=== PATIENT | male | born 1995 | race Caucasian/White ===

== ENCOUNTER 2024-03-31 11:15 | Emergency (ER) | payer BC, SELFPAY ==
[2024-03-31 11:35] VITALS: BP 134/66; PULSE 90; RESP 16; TEMP 36.6; O2SAT 98
--- NOTE | 2024-03-31 11:49 | ED.URI ---
HPI - URI/Sore Throat General Chief Complaint: Upper Respiratory Infection Stated Complaint: Sinus Infection Time Seen by Provider: 03/31/24 11:49 Source: patient and RN notes reviewed Mode of arrival: ambulatory Limitations: no limitations History of Present Illness HPI Narrative: 29-year-old male presented for complaint of sinus congestion and pressure, headache and cough for almost 2 weeks. He tested negative for strep, COVID, and flu 2 days ago. Endorses shortness of breath when walking up stairs. Denies chest pain, palpitations, wheezing, nausea, vomiting, diarrhea, fevers or chills. Taking Mucinex and DayQuil. is positive for strep. MD elicited complaint: cough Related Data Allergies Allergy/AdvReac Type Severity Reaction Status Date / Time No Known Allergies Allergy Verified 03/31/24 11:41 Review of Systems Review of Systems: CONSTITUTIONAL: Endorses malaise, denies chills, sweats, fever EYES: Denies visual changes, redness, or discharge ENT: Reports rhinorrhea, congestion, sinus pain, sore throat CARDIOVASCULAR: Denies chest pain, palpitations, edema RESPIRATORY: Reports cough, post nasal drainage. Denies dyspnea GASTROINTESTINAL: Denies abdominal pain, nausea, vomiting, diarrhea SKIN: Denies rash MUSCULOSKELETAL: Endorses myalgia NEUROLOGIC: Reports headache Exam Narrative: GENERAL: Mildly Ill-appearing, nontoxic EYES: PERRLA, conjunctivae clear ENT: Mucous membranes moist. TMs pearly garcia with dull light reflex bilaterally; no tragal tenderness. Oropharynx not erythematous without lesions or exudate, no drooling, no hoarseness, no trismus, uvula midline. No tripod positioning, muffled voice, soft palate or pharyngeal wall bulging NECK: Supple. No lymphadenopathy CHEST: Clear to auscultation, breath sounds equal. No wheezing, rhonchi, rales, or stridor. No respiratory distress, speaks in full sentences. Occasional nonproductive cough noted. HEART: Regular rate and rhythm. No murmur heard. SKIN: Warm, dry, no rash. NEURO: Alert and oriented x3. PSYCH: Normal mood and affect Course Course Emergency Course: Patient is aware of diagnosis, understands and agrees to treatment plan. Anticipatory guidance given. Patient agrees to follow-up as directed and is aware of reasons to seek care at the emergency department. Portions of this record may have been created with voice recognition software Level of Care: Express Care Visit Vital Signs Vital signs: Vital Signs Temperature 97.8 F 03/31/24 11:35 Pulse Rate 90 03/31/24 11:35 Respiratory Rate 16 03/31/24 11:35 Blood Pressure 134/66 03/31/24 11:35 Pulse Oximetry 98 03/31/24 11:35 Oxygen Delivery Room Air 03/31/24 11:35 Temperature 97.8 F 03/31/24 11:35 Pulse Rate 90 03/31/24 11:35 Respiratory Rate 16 03/31/24 11:35 Blood Pressure 134/66 03/31/24 11:35 Pulse Oximetry 98 03/31/24 11:35 Oxygen Delivery Room Air 03/31/24 11:35 reviewed MDM - URI/Sore Throat MDM Narrative Medical decision making narrative: Discussed physical exam findings. Advised supportive measures and signs/symptoms to go to the ER. Pt is appropriate for outpt treatment and f/u. Differential Diagnosis Differential diagnosis: Likely upper respiratory infection, sinusitis, viral infection and bronchitis Discharge Plan Discharge Clinical Impression: Sinusitis Patient Disposition: Home, Self-Care Condition: Stable Instructions: Antibiotic Form, Rhinosinusitis (ED) Additional Instructions: Take antibiotic as directed Recommend Flonase spray and Zyrtec (or Claritin/Radha) over the counter Cough syrup may cause drowsiness; avoid driving or take it at night time. Tylenol 1000mg every 8 hours as needed for pain Symptomatic treatment includes: rest, fluids, and increase humidity of the air at home. Follow up with your primary care provider in 1 week. Go to the ER for worsening symptoms or concerns. Prescrip
== END 2024-03-31 12:00 | disposition home or self-care (01) ==
PROVIDERS: Emergency Provider Nurse Practitioner Family
DX: J32.9 Chronic sinusitis, unspecified (principal)
CPT/HCPCS: 99203; G0463

== ENCOUNTER 2024-09-24 11:09 | Emergency (ER) | payer BC, SELFPAY ==
[2024-09-24 11:15] VITALS: BP 133/78; PULSE 84; RESP 18; TEMP 36.4; O2SAT 99
--- NOTE | 2024-09-24 11:29 | ED_ITS ---
HPI - URI/Sore Throat General Chief Complaint: Upper Respiratory Infection Stated Complaint: Cold Like Time Seen by Provider: 09/24/24 11:11 Source: patient and RN notes reviewed Mode of arrival: ambulatory Limitations: no limitations History of Present Illness HPI Narrative: 29-year-old male presents to the [facility] today complaining of upper respiratory symptoms. His symptoms have been going on for the last 2 weeks. He reports he started with a sore throat and congestion this progress into a cough and sinus pressure. He has tried Tylenol and ibuprofen without relief. He reports the sinus pressure in his face is worse when he bends over at the waist. He reports having green nasal discharge. He says the symptoms have progressively gotten worse and he is not feeling any better. Related Data Allergies Allergy/AdvReac Type Severity Reaction Status Date / Time No Known Allergies Allergy Verified 09/24/24 11:17 Review of Systems Review of Systems: CONSTITUTIONAL: Denies fever or sweats. positive for chills. EYES: Denies visual changes, redness, or discharge. ENT: Denies rhinorrhea or otalgia. positive for congestion sore throat. CARDIOVASCULAR: Denies chest pain, palpitations, or edema. RESPIRATORY: Positive for cough. Negative for difficulty breathing GASTROINTESTINAL: Denies abdominal pain, nausea, vomiting, or diarrhea. GENITOURINARY: Denies dysuria or hematuria. SKIN: Denies rash or itching. MUSCULOSKELETAL: Denies back pain, joint pain, or myalgia. NEUROLOGIC: Denies headache, numbness, or weakness. PSYCHIATRIC: Denies anxiety or depression. All other systems reviewed are negative, except as documented in HPI. PMFSH Comments At the time of my signature, I reviewed and agree with the nursing past medical, surgical, social, and family history. There is no relevant family history pertinent to the patient complaint. Exam Narrative: GENERAL: This is a well-nourished, well-developed patient, in no apparent distress. He is nontoxic, [id number] HEAD: normocephalic, atraumatic. EYES: Sclera clear/white. Vision is grossly intact. EARS: External ears normal, auditory canals with cerumen and without drainage, TMs normal without perforation. Hearing grossly intact. NOSE: External nose normal with no obvious nasal discharge, nares with erythema, no rhinorrhea. Frontal sinus tenderness to palpation. THROAT: Mucous membranes moist, posterior pharynx with mild erythema and postnasal drip. NECK: Neck supple, tender with lymphadenopathy, no masses or thyromegaly. CARDIOVASCULAR: Regular rate and rhythm without murmurs, gallops, or rubs. RESPIRATORY: Clear to auscultation. Breath sounds equal bilaterally. No wheezes, rales, or rhonchi. Negative for egophony GASTROINTESTINAL: Abdomen soft, non-tender, nondistended. no guarding. SKIN: warm, Dry, intact with no suspicious lesions or rash, good texture and turgor. NEURO: awake, alert, and oriented to person, place and time. There were no obvious focal neurologic abnormalities. EXTREMITIES: No joint tenderness, effusion, or edema noted. BACK: Nontender without deformity. No CVA tenderness. Course Course Level of Care: Express Care Visit Vital Signs Vital signs: Vital Signs Temperature 97.6 F 09/24/24 11:15 Pulse Rate 84 09/24/24 11:15 Respiratory Rate 18 09/24/24 11:15 Blood Pressure 133/78 09/24/24 11:15 Pulse Oximetry 99 09/24/24 11:15 Oxygen Delivery Room Air 09/24/24 11:15 Temperature 97.6 F 09/24/24 11:15 Pulse Rate 84 09/24/24 11:15 Respiratory Rate 18 09/24/24 11:15 Blood Pressure 133/78 09/24/24 11:15 Pulse Oximetry 99 09/24/24 11:15 Oxygen Delivery Room Air 09/24/24 11:15 reviewed MDM - URI/Sore Throat MDM Narrative Medical decision making narrative: Symptoms have persisted for the last 14 days and then progressively gotten worse. Symptoms are consistent with a bacterial sinusitis. Will treat him with Augmentin. Advised him to use Flonase nasal spray and Mucinex for symptom management along with a Neti pot saline rinse. Anticipatory guidance given. ED precautions given. he declined any COVID, flu, or strep testing at this time. Differential Diagnosis Differential diagnosis: Likely upper respiratory infection, sinusitis, viral infection and pharyngitis Critical Care Time Critical Care Time Critical Care Time: No Discharge Plan Discharge Clinical Impression: Sinusitis Qualifiers: Sinusitis location: unspecified location Chronicity: acute Recurrence: non- recurrent Qualified Code(s): J01.90 - Acute sinusitis, unspecified Patient Disposition: Home, Self-Care Condition: Stable Instructions: Antibiotic Form, Sinusitis (ED) Additional Instructions: Take the antibiotics as directed and complete the course even if you start to feel better. You may use a Neti pot saline rinse 3 times a day. Go to the ER for new or worsening symptoms. Continue to take Tylenol or Motrin for pain. Use a humidifier or vaporizer at night. Drink plenty of water. 8-10 glasses per day. Use flonase 2 times per day for 5 days then as needed Take mucinex 2 times per day and be sure to take with 8oz of water. Follow up with Primary provider if not getting better. Follow-up with an ENT for further evaluation of your sinuses. Patient Language: Tamazight Prescriptions: New amoxicillin-pot clavulanate 875-125 mg tablet 1 tablet PO Q12H 7 Days Qty: 14 0RF fluticasone propionate [24 Hour Allergy Relief] 50 mcg/actuation spray,suspension 2 spray intranasal DAILY Qty: 16 0RF Rx Instructions: administer into each nostril Follow-up/Referrals: Pablito Nicole MD [Non-Staff] - PHYSICIAN,SOCIAL SERVICES ANALYST [Primary Care Provider] - Time of Disposition: 11:32
--- OUTSIDE RECORDS SUMMARY | 2024-09-24 12:23 | XMS_ITS | Clinical Summary ---
Author Organization [facility] [employer] Address [address] [place] [address] Care Team Providers Care Help Desk Internship Name Role Phone Unavailable Primary Care Provider Unavailabl e Source Comments [facility],non-owned Affiliates and Associated Physician Practices is amultiple site organization consisting of ambulatory clinics and hospital sitesin [place], [place], [place] and [place]. This disclosure is being madepursuant to the Care Everywhere program and may not contain all information available regarding this patient. Last updated 18.[facility] [employer] Social History Tobacco Use Types Packs/Day Years Used Date Smoking Tobacco: Never Assessed Sex and Gender Information Value Date Recorded Sex Assigned at Not on file Gender Identity Not on file Sexual Orientation Not on file Plan of Treatment Health Maintenance Due Date Last Done Comments HIV SCREENING 2009 HEPATITIS C SCREENING 12/29/2011 DTAP/TDAP/TD VACCINES (1 - Tdap) 2013 HEPATITIS B VACCINE (1 of 3 - 19+ 3-dose series) 2013 COVID-19 VACCINE (1 - 2023-2 5 season) 2024 INFLUENZA VACCINE (#1) 2024 DEPRESSION SCREENING 07/01/2024 ZOSTER VACCINE (1 of 2) 01/03/2044 HIB VACCINE Aged Out No longer eligi ble based on patient's age to complete this topic HPV VACCINE Aged Out No longer eligi ble based on patient's age to complete this topic MENINGOCOCCAL (Group B) VACC INE SHARED DECISION-MAKING Aged Out No longer eligibl e based on patient's age to complete this topic MENINGOCOCCAL GROUPS A/C/Y/W VACCINE Aged Out No longer eligible b ased on patient's age to complete this topic PNEUMOCOCCAL VACCINE Aged Out No long er eligible based on patient's age to complete this topic
--- OUTSIDE RECORDS SUMMARY | 2024-09-24 12:23 | XMS_ITS | Clinical Summary ---
Author Organization [facility] Address [address] [place] [address] Care Team Providers Care Studio Owner Name Role Phone Unavailable Primary Care Provider Unavailabl e Social History Tobacco Use Types Packs/Day Years Used Date Smoking Tobacco: Never Assessed Sex and Gender Information Value Date Recorded Sex Assigned at Not on file Legal Sex Male 8:01 AM CDT Gender Identity Not on file Sexual Orientation Not on file Last Filed Vital Signs Vital Sign Reading Time Taken Comments Blood Pressure 122/70 05/16/2015 2:37 PM PUNCH PRESS OPERATOR HELPER Pulse 72 05/16/2015 2:37 PM PUNCH PRESS OPERATOR HELPER Temperature - - Respiratory Rate - - Oxygen Saturation - - Inhaled Oxygen Concentration - - Weight 87.1 kg (192 lb) 05/16/2015 2:37 PM PUNCH PRESS OPERATOR HELPER Height 185.4 cm (6' 1 ) 05/16/2015 2:37 PM PUNCH PRESS OPERATOR HELPER Body Mass Index 25.33 05/16/2015 2:37 PM PUNCH PRESS OPERATOR HELPER Plan of Treatment Upcoming Encounters Date Type Department Care Team (Late st Contact Info) Description 11/03/2024 10:00 AM CDT Office Visit [facility] - [place], [address] [place] [phone] Alpa VII, Trace Mchugh MD [address] [facility], [address] [phone] Health Maintenance Due Date Last Done Comments Annual Physical 1997 Hepatitis C 01/03/2012 DTaP, Tdap and Td Vaccines (7 - Td or Tdap) 10/22/2017 10/23/2007, 11/02/1998, 05/17/1995, Additional history exists COVID-19 Vaccine ( season) 2024 Influenza Adult (#1) 2024 Hepatitis B Vaccines Completed 1994, 1994, 1994 Pneumococcal Vaccine: Pediatrics (0 to 5 Years) and At-Risk Patients (6 to 64 Years) Aged Out 11/02/1998, 1994, 1994, Additional history exists No longer eligible based on patient's age to complete this topic Meningococcal Vaccine Aged Out 10/23/2007 No julio sherice eligible based on patient's age to complete this topic HPV Vaccines Aged Out No longer eligi ble based on patient's age to complete this topic Meningococcal B Vaccine Aged Out No l onger eligible based on patient's age to complete this topic RSV Immunizations Under 20 Months Aged Out No longer eligible based on patient's age to complete this topic Insurance
--- OUTSIDE RECORDS SUMMARY | 2024-09-24 12:23 | XMS_ITS | Referral Summary ---
Author Organization [address] Address [address] [place] [phone] Care Team Providers Care Data Services Developer Name Role Phone Unknown, Notinfile Primary Care Provider Unavail able Allergies No known active allergies Medications benzonatate (TESSALON) 200 mg capsuleIndicati ons:Acute viral syndrome Take 1 capsule (200 mg total) by mouth 3 (three) times a day as needed for cough 30 capsule 03/29/2024 Active Active Problems No known active problems Social History Tobacco Use Types Packs/Day Years Used Date Smoking Tobacco: Never Assessed Sex and Gender Information Value Date Recorded Sex Assigned at Not on file Legal Sex Male 10:38 AM CDT Gender Identity Not on file Sexual Orientation Not on file Last Filed Vital Signs Vital Sign Reading Time Taken Comments Blood Pressure 132/91 03/29/2024 10:51 AM CDT Pulse 77 03/29/2024 10:51 AM CDT Temperature 36.8 C (98.3 F) 03/29/2024 10:51 AM CDT Respiratory Rate 20 03/29/2024 10:51 AM CDT Oxygen Saturation 98% 03/29/2024 10:51 AM CDT Inhaled Oxygen Concentration - - Weight 104.3 kg (230 lb) 03/29/2024 10:51 AM CDT Height 185.4 cm (6' 1 ) 03/29/2024 10:51 AM CDT Body Mass Index 30.34 03/29/2024 10:51 AM CDT Plan of Treatment Not on file Insurance [facility] Care Teams Data Services Developer Relationship Specialty Start Date End Date Unknown, Notinfile PCP - General 03/29/24
--- OUTSIDE RECORDS SUMMARY | 2024-09-24 12:23 | XMS_ITS | Clinical Summary ---
Author Organization [address] Address [address] [place] [id number] Care Team Providers Care Neonatologist Name Role Phone Unknown, Notinfile Primary Care [...] on file Sexual Orientation Not on file Obstetrics History Last Filed Vital Signs Vital Sign Reading [...] 03/29/2024 10:51 AM CDT Plan of Treatment Health Maintenance Due Date Last Done Comments Depression Screening 1994 Hepatitis C Screening 1994 Varicella Vaccines (1 of 2 - 13+ 2-dose series) 2007 Regular Well Visit/Exam 18-64 01/03/2012 Covid-19 Vaccine ( season) 2024 09/08/2020, 08/10/2020 Influenza Vaccine (#1) 2024 07/07/2023, 2021 DTaP/Tdap/Td Vaccine (8 - Td or Tdap) 11/20/2032 11/20/2022, 10/23/2007, 11/02/1998, Additional history exists Hepatitis B Screening Completed 1994 , 1994, 1994 HPV Vaccines Aged Out No longer eligi ble based on patient's age to complete this topic Pneumococcal vaccine <65 Aged Out No longer eligible based on patient's age to complete this topic [place] [address] [place] [address] Care Teams Neonatologist Relationship Specialty Start Date End Date Unknown, Notinfile PCP - General 03/29/24
== END 2024-09-24 11:37 | disposition home or self-care (01) ==
DX: J01.90 Acute sinusitis, unspecified (principal)
CPT/HCPCS: 99213; G0463

== ENCOUNTER 2025-06-22 09:21 | Emergency (ER) | payer BC, SELFPAY ==
[2025-06-22 09:26] VITALS: BP 155/89; PULSE 76; RESP 16; TEMP 36.4; O2SAT 100
--- NOTE | 2025-06-22 09:28 | ED.URI ---
HPI - URI/Sore Throat General Chief Complaint: Upper Respiratory Infection Stated Complaint: Flu Like Source: patient Mode of arrival: ambulatory Limitations: no limitations History of Present Illness HPI Narrative: this is a 30-year-old male patient presents to urgent care with complaints of sore throat, cough since Saturday. He states every day it is continued to get worse. He states he can barely swallow due to the pain. He is able to swallow and drink, he is able to breathe with no difficulty. He complains of body aches and fever. Slight nausea. No vomiting. Patient reports his family has been positive for influenza A MD elicited complaint: fever, cough and sore throat Onset (ago): day(s) (3) Consistency: constant Severity: moderate Exacerbating factors: swallowing Relieving factors: nothing Context: sick contacts Associated symptoms: denies other symptoms Treatments prior to arrival: acetaminophen Related Data Allergies Allergy/AdvReac Type Severity Reaction Status Date / Time No Known Allergies Allergy Verified 06/22/25 09:26 Exam Const: General: ill appearing Nutritional Appearance: well nourished Orientation/consciousness: patient oriented x3 Limitations: no limitations HENMT: Head: normal to inspection Ears: external ears normal Face/Nose/Sinus: Nasal discharge present clear bilateral Face and sinus: normal facial exam and sinuses nontender Mouth: Yes Normal oral and palatal mucosa present and Yes lip normal Teeth and gingiva: dentition normal Throat: abnormal tonsil bilateral erythema and exudates, posterior oropharynx abnormal erythema and exudates and postnasal drainage Eyes: Conjunctivae: conjunctivae normal Pupils: Equal, round and reactive pupils present EOM: EOMs intact bilaterally Direct Ophthalmoscopy: no photophobia Neck: Neck: normal visual inspection and lymphadenopathy anterior cervical Resp: Effort & Inspection: normal respiratory effort Auscultation: clear to auscultation bilaterally Cardio: Rate: regular rate Rhythm: regular rhythm GI: GI Palp: Yes Soft to palpation Auscultation: normal bowel sounds Back/Spine/Pelvis: Back: no CVA tenderness Skin: General skin exam: normal color Rashes: no rashes Wounds: no wounds Neuro: General: patient oriented x3 Cranial nerves: Yes Nystagmus not present Speech: normal speech Gait exam (Neuro): Normal gait present Extrem: General: normal to inspection and no clubbing, cyanosis or edema Psych: Mental Status: mental status grossly normal Affect: normal affect Attitude: cooperative Course Course Emergency Course: this is a 30-year-old male patient presents to urgent care with complaints of sore throat, cough since Saturday. He states every day it is continued to get worse. He states he can barely swallow due to the pain. He is able to swallow and drink, he is able to breathe with no difficulty. He complains of body aches and fever. Slight nausea. No vomiting. Patient reports his family has been positive for influenza A vital signs stable. COVID, influenza a and B, strep a rapid swab ordered. COVID influenza a and B were negative. Strep a was positive. Educated patient on positive strep, treatment, and outpatient follow-up. He verbalized understanding answered all his questions to his satisfaction he is agreeable to this plan. Educated the patient to Increase fluids, rest, symptomatic management: - cough and cold medication per package instructions, - cough drops for sore throat and cough, - vicks vapor rub, - tylenol and motrin for fever and body aches, - soft bland foods, follow-up with primary care chronic 2-3 days for further evaluation and exam educated on antibiotic and prednisone as prescribed. Educated the patient that-you are contantagious so avoid any crowds, immunocompromised people, infants or elderly. patient denies any further needs or concerns to be addressed prior to discharge Level of Care: Express Care Visit Vital Signs Vital signs: Vital Signs Temperature 97.5 F L 06/22/25 09:26 Pulse Rate 76 06/22/25 09:26 Respiratory Rate 16 06/22/25 09:26 Blood Pressure 155/89 H 06/22/25 09:26 Pulse Oximetry 100 06/22/25 09:26 Oxygen Delivery Room Air 06/22/25 09:26 Temperature 97.5 F L 06/22/25 09:26 Pulse Rate 76 06/22/25 09:26 Respiratory Rate 16 06/22/25 09:26 Blood Pressure 155/89 H 06/22/25 09:26 Pulse Oximetry 100 06/22/25 09:26 Oxygen Delivery Room Air 06/22/25 09:26 [facility] Narrative Medical decision making narrative: this is a 30-year-old male patient presents to urgent care with complaints of sore throat, cough since Saturday. He states every day it is continued to get worse. He states he can barely swallow due to the pain. He is able to swallow and drink, he is able to breathe with no difficulty. He complains of body aches and fever. Slight nausea. No vomiting. Patient reports his family has been positive for influenza A vital signs stable. COVID, influenza a and B, strep a rapid swab ordered. COVID influenza a and B were negative. Strep a was positive. Educated patient on positive strep, treatment, and outpatient follow-up. He verbalized understanding answered all his questions to his satisfaction he is agreeable to this plan. Educated the patient to Increase fluids, rest, symptomatic management: - cough and cold medication per package instructions, - cough drops for sore throat and cough, - vicks vapor rub, - tylenol and motrin for fever and body aches, - soft bland foods, follow-up with primary care chronic 2-3 days for further evaluation and exam educated on antibiotic and prednisone as prescribed. Educated the patient that-you are contantagious so avoid any crowds, immunocompromised people, infants or elderly. patient denies any further needs or concerns to be addressed prior to discharge Differential Diagnosis Differential Diagnosis: COVID, influenza, strep Medical Records I have reviewed the following patient records and this information was taken into consideration when formulating the assessment and plan.: previous labs Lab Data MDM Lab Attestation statement: I personally reviewed the patient's lab results. Lab results narrative: COVID, influenza a and B negative Labs: Lab Results 06/22/25 Range/Units 09:36 POC Grp A Strep Screen Positive (Negative) Discharge Plan Discharge Clinical Impression: Strep pharyngitis Patient Disposition: Home Condition: Stable Instructions: Antibiotic Form, Strep Throat (ED) Additional Instructions: Increase fluids, rest, symptomatic management: - cough and cold medication per package instructions, - cough drops for sore throat and cough, - vicks vapor rub, - tylenol and motrin for fever and body aches, - soft bland foods, follow-up with primary care chronic 2-3 days for further evaluation and exam -you are contantagious so avoid any crowds, immunocompromised people, infants or elderly. Patient Language: Lithuanian Prescriptions: New amoxicillin-pot clavulanate 875-125 mg tablet 1 tablet PO Q12H Qty: 14 0RF prednisone 20 mg tablet 20 mg PO BID Qty: 6 0RF Follow-up/Referrals: PHYSICIAN,INSTRUCTIONAL SUPPORT SERVICES DIRECTOR [Primary Care Provider, Internal Medicine] Time of Disposition: 09:50
[2025-06-22 09:37] LABS: EDSTREPNEGPOS1 Positive (Negative)
--- OUTSIDE RECORDS SUMMARY | 2025-06-22 09:37 | XMS_ITS | Patient Health Record ---
Author Organization [facility], [place] Address [address], [place] [id number] Care Team Providers Care Check Pilot Name Role Phone Estevan Morgan Primary Care Provider Reason For Referral No Information Plan Of Treatment No Information Insurance Providers Payer Name Payer Address Payer Phone Subscriber Number Group Number Insured Name Patient Relationship to Insured Coverage Start Date Coverage End Date BC[facility] P[facility] (OFFICE USE) [address] [place], [place] [id number] [phone] [id number] Gautam Gonsalez Self - patient is the insured
--- OUTSIDE RECORDS SUMMARY | 2025-06-22 09:37 | XMS_ITS | Clinical Summary ---
Author Organization [employer] [facility] lin Address [address] [place] [address] Care Team Providers Care Livestock Trucker Name Role Phone Unavailable Primary Care Provider Unavailabl e Social History Tobacco Use Types Packs/Day Years Used Date Smoking Tobacco: Never Assessed Sex and Gender Information Value Date Recorded Sex Assigned at Not on file Legal Sex Male 3:51 PM EDT Gender Identity Not on file Sexual Orientation Not on file Plan of Treatment Not on file Medical Devices Not on file Insurance [facility]
--- OUTSIDE RECORDS SUMMARY | 2025-06-22 09:37 | XMS_ITS | Clinical Summary ---
Author Organization [facility] [place] [address] [place] Address [address] [place] [id number] Care Team Providers Care Crystal Finisher Name Role Phone Unknown, Notinfile Primary Care [...] 10:51 AM CDT Height 185.4 cm (6' 1) 03/29/2024 10:51 AM CDT Body Mass Index 30.34 03/29/2024 10:51 AM CDT Plan of Treatment Health Maintenance Due Date Last Done Comments Depression Screening 1994 Hepatitis C Screening 1994 Varicella Vaccines (1 of 2 - 13+ 2-dose series) 2007 Regular Well Visit/Exam 18-64 01/03/2012 HPV Vaccines (1 - 3-dose SCDM series) 2021 Covid-19 Vaccine ( season) 2025 09/08/2020, 08/10/2020 Influenza Vaccine (#1) 2025 07/07/2023, 2021 DTaP/Tdap/Td Vaccine (8 - Td or Tdap) 11/20/2032 11/20/2022, 10/23/2007, 11/02/1998, Additional history exists Hepatitis B Screening Completed 1994 , 1994, 1994 Pneumococcal vaccine <65 Aged Out No longer eligible based on patient's age to complete this topic Insurance [facility] Care Teams Crystal Finisher Relationship Specialty Start Date End Date Unknown, Notinfile PCP - General 03/29/24
--- OUTSIDE RECORDS SUMMARY | 2025-06-22 09:37 | XMS_ITS | Clinical Summary ---
Author Organization [facility] Address [address] [place] [address] Care Team Providers Care Textile Designer Name Role Phone Unavailable Primary Care Provider Unavailabl e Source Comments [facility],non-owned Affiliates and Associated Physician Practices is amultiple site organization consisting of ambulatory clinics and hospital sitesin [place], [place], [place] and [place]. This disclosure is being madepursuant to the Care Everywhere program and may not contain all information available regarding this patient. Last updated 18.[facility] [employer] Social History Tobacco Use Types Packs/Day Years Used Date Smoking Tobacco: Never Assessed Sex and Gender Information Value Date Recorded Sex Assigned at Not on file Legal Sex Male 9:43 AM CDT Gender Identity Not on file Sexual Orientation Not on file Plan of Treatment Health Maintenance Due Date Last Done Comments HIV SCREENING 2009 HEPATITIS C SCREENING 12/29/2011 DTAP/TDAP/TD VACCINES (1 - Tdap) 2013 HEPATITIS B VACCINE (1 of 3 - 19+ 3-dose series) 2013 HPV VACCINE (1 - 3-dose SCDM series) 2021 DEPRESSION SCREENING 07/01/2024 COVID-19 VACCINE (1 - 2024-2 6 season) 2025 INFLUENZA VACCINE (#1) 2025 ZOSTER VACCINE (1 of 2) 01/03/2044 HIB [...]
--- OUTSIDE RECORDS SUMMARY | 2025-06-22 09:37 | XMS_ITS | Clinical Summary ---
Author Organization [facility] Address [address] [place] [id number] Care Team Providers Care Head Mva Reactor Operator Name Role Phone Trace Viramontes MD Primary Care Prov ider Allergies No known active allergies Medications fluticasone propionate (FLONASE) 50 MCG/ACT nasal spray 2 sprays by Each Nostril route daily. SHAKE LIQUID 09/24/2024 Active omeprazole (PRILOSEC) 40 MG capsuleIndicati ons:Left sided abdominal pain Take 1 capsule (40 mg total) by mouth daily. 30 capsule 1 03/22/2025 Active Encounters Date Type Department Care Team Description 03/26/2025 Results Follow-Up [facility] [address], [address] [place] [phone] Trace Viramontes MD LIPASE, COMPREHENSIVE METABOLIC PANEL from Last 3 Months Family History Medical History Relation Comments Depression Father Hypertension Father Diabetes Maternal Grandfather Relation Status Comments Father Alive Maternal Grandfather Alive Social History Tobacco Use Types Packs/Day Years Used Date Smoking Tobacco: Never Smokeless Tobacco: Never Tobacco Cessation:Counseling Given: No Alcohol Use Standard Drinks/Week Comments Yes 6.7 (1 standard drink = 0.6 oz p ure alcohol) PHQ-2 Answer Date Recorded Patient Health Questionnaire-2 Score 0 11/03/2024 Sex and Gender Information Value Date Recorded Sex Assigned at Male 11/03/2024 10:45 AM CDT Legal Sex Male 8:01 AM CDT Gender Identity Male 11/03/2024 10:45 AM CDT Sexual Orientation Straight 11/03/2024 10 :45 AM CDT Last Filed Vital Signs Vital Sign Reading Time Taken Comments Blood Pressure 114/80 03/22/2025 11:57 AM CDT Pulse 63 03/22/2025 11:57 AM CDT Temperature 35.9 C (96.7 F) 03/22/2025 11:57 AM CDT Respiratory Rate 18 03/22/2025 11:5 7 AM CDT Oxygen Saturation 98% 03/22/2025 11: 57 AM CDT Inhaled Oxygen Concentration - - Weight 103.8 kg (228 lb 14.4 oz) 2024 11:57 AM CDT Height 188 cm (6' 2) 03/22/2025 11:57 AM CDT Body Mass Index 29.39 03/22/2025 11:57 AM CDT Plan of Treatment Health Maintenance Due Date Last Done Comments Annual Physical 1997 Hepatitis C 01/03/2012 HPV Vaccines (1 - 3-dose SCDM series) 2021 COVID-19 Vaccine ( season) 2025 09/08/2020, 08/10/2020 Influenza Adult (#1) 2025 07/07/2023, 06/13/20 22 DTaP, Tdap and Td Vaccines (8 - Td or Tdap) 11/20/2032 11/20/2022, 10/23/2007, 11/02/1998, Additional history exists Hepatitis B Vaccines Completed 1994, 1994, 1994 Pneumococcal Vaccine: Pediatrics (0 to 5 Years) and At-Risk Patients (6 to 49 Years) Aged Out 11/02/1998, 1994, 1994, Additional history exists No longer eligible based on patient's age to complete this topic Meningococcal Vaccine Aged Out 12/10/2011, 008 No longer eligible based on patient's age to complete this topic Hepatitis A Vaccines Completed 07/09/2012, 12/10/19 12 PHQ-2 (Physician [place]) Completed 11/03/2024 Meningococcal B Vaccine Aged Out No l onger eligible based on patient's age to complete this topic RSV Immunizations Under 20 Months Aged Out No longer eligible based on patient's age to complete this topic Insurance [facility] [place] [address] [facility] Care Teams Head Mva Reactor Operator Relationship Specialty Start Date End Date Alpa VII, Trace Mchugh MD [address] [place] [id number] PCP - General FAMILY PRACTICE 11/03/24
[2025-06-22 09:55] LABS: EDCOVIDSCREEN Negative (Negative); EDINFLUASCREEN Negative (Negative); EDINFLUBSCREEN Negative (Negative)
== END 2025-06-22 09:56 | disposition home or self-care (01) ==
PROVIDERS: Emergency Provider Nurse Practitioner Family
DX: J02.0 Streptococcal pharyngitis (principal); Z20.822 Contact with and (suspected) exposure to COVID-19
CPT/HCPCS: 87426; 87804; 87880; 99213; G0463